=== PATIENT | female | born 1985 | race Caucasian/White ===

== ENCOUNTER → 2021-04-05 | Outpatient (CLI) | payer OTHER ==
[2021-04-05 08:39] VITALS: BP 116/77; PULSE 73; RESP 18; TEMP 98.8
--- NOTE | 2021-04-05 09:50 | P.HPOB ---
History of Present Illness H&P Date: 04/05/21 Chief Complaint: The patient is here for her routine gynecologic exam. This is a 36-year-old with an LMP of 03/08/2021 who is status post tubal ligation. She is here to establish with this office. She is without gynecologic complaints and states her menstrual periods are regular every month. It has been about 6 years since her last pelvic exam. Review of Systems She denies respiratory or GI problems. Cardiac: Occasional heart racing which she has noticed since she had a covid 2 months ago. Past Medical History Past Medical History: No Reported History Additional Past Medical History / Comment(s): Past GEOSCIENTIST history: She was treated for chlamydia in 2005. She had a cryotherapy of the cervix at age 14. History of Any Multi-Drug Resistant Organisms: None Reported Past Surgical History: Tubal Ligation Additional Past Surgical History / Comment(s): Cryotherapy of the cervix at age 14. Past Psychological History: No Psychological Hx Reported Smoking Status: Former smoker Past Alcohol Use History: None Reported Additional Past Alcohol Use History / Comment(s): Quit smoking in November 2020. Past Drug Use History: None Reported Additional History: She is but is back together with her ex- and they live together. She works as a assistant construction superintendent. - Past Family History Mother Family Medical History: No Reported History Additional Family Medical History / Comment(s): A maternal grandmother and maternal aunt had breast cancer. Father Family Medical History: No Reported History Additional Family Medical History / Comment(s): A paternal great grandmother had ovarian cancer. Medications and Allergies Home Medications Medication Instructions Recorded Confirmed Type No Known Home Medications 04/05/21 04/05/21 History Allergies Allergy/AdvReac Type Severity Reaction Status Date / Time Sulfa (Sulfonamide Allergy Rash/Hives Unverified 04/05/21 08:35 Antibiotics) Exam Vital Signs Temp Pulse Resp BP Pulse Ox 04/05/21 08:35 98.8 F 73 18 116/77 99 Intake and Output 04/04/21 04/05/21 04/05/21 22:59 06:59 14:59 Other: Weight 80.739 kg Height 5 feet 2 inches, weight 178 pounds, BMI 32.6. This is a well-developed well-nourished white female who is alert and oriented times 3 in no acute distress. She has multiple tattoos. HEENT: Within normal limits. NECK: Supple without mass or thyromegaly. CHEST AND LUNGS: Clear to auscultation. HEART: Regular rate and rhythm. BREASTS: Are without mass or discharge. AXILLARY EXAM: Negative for adenopathy. BACK: Negative for CVA tenderness. ABDOMEN: Soft, nontender, without palpable masses. PELVIC EXAM: Normal external genitalia. Cervix and vagina appear normal. The cervix is slightly friable upon doing the Pap smear. There is no unusual discharge. There is no evidence of prolapse. The uterus is midposition, nongravid size and nontender. There are no palpable adnexal masses or tenderness. RECTAL EXAM: negative for mass or tenderness. EXTREMITIES: Nontender. IMPRESSION: 1. 36-year-old female status post tubal ligation with normal gynecologic exam. 2. Family history of breast cancer in a maternal grandmother and maternal aunt. A paternal great grandmother had ovarian cancer. PLAN: 1. Pap smear cotest was performed. 2. Self breast awareness was discussed with the patient. 3. Screening baseline mammogram was recommended because of her family history of breast cancer in 2 second-degree relatives. 4. We have discussed cancer genetic counseling and testing. She will let me know if other family members developed cancer, especially in first or second- degree relatives. 5. I have recommended that she establish with a primary care physician for her ongoing medical care. 6. She was advised to return in one year for her annual well woman exam.
== END ==
LOC: WWCWWP 08:26
PROVIDERS: ATTEND Obstetrics & Gynecology
DX: Z01.419 Encounter for gynecological examination (general) (routine) without abnormal findings (principal); Z80.3 Family history of malignant neoplasm of breast; Z80.41 Family history of malignant neoplasm of ovary; Z87.891 Personal history of nicotine dependence; Z88.2 Allergy status to sulfonamides; Z98.51 Tubal ligation status